=== PATIENT | female | born 1995 | race Caucasian/White ===

== ENCOUNTER 2017-01-18 10:17 | Emergency (ER) | payer BC ==
[~2017-01-18] VITALS: Ht 162.6 cm; Wt 61.0 kg
[2017-01-18 10:27] VITALS: Ht 162.6 cm; Wt 61.0 kg
[2017-01-18 10:53] LABS: URINE BLOOD (Dip) POC 3+ (NEGATIVE)
[2017-01-18] MEDS ORDERED: PHENAZOPYRIDINE 100 MG TAB PO ONE (12:00)
[2017-01-18] MEDS ORDERED: CEPHALEXIN 500 MG CAP PO ONE (12:00)
[2017-01-18] MEDS ORDERED: CEPH-443 PO (12:30)
[2017-01-18] MEDS ORDERED: PHEN-538 PO (12:30)
--- NOTE | 2017-01-18 12:37 | ERD ---
ER Documentation Chief Complaint Date/Time DATE: 01/18/17 TIME: 12:36 Chief Complaint dysuria x 4 days HPI This 21-year-old female presents with dysuria for last 4 days. She denies any fevers, flank pain. She is mild suprapubic pain. She denies vomiting but has mild nausea. She denies previous history of UTI or ROS All systems reviewed and are negative except as per history of present illness. Medications Home Meds Active Scripts Phenazopyridine Hcl* (Pyridium*) 200 Mg Tab, 200 MG PO TID Y for URINARY PAIN, # 6 TAB Prov:ZIA BERNARDO MD 01/18/17 Cephalexin* (Keflex*) 500 Mg Capsule, 500 MG PO QID for 5 Days, CAP Prov:ZIA BERNARDO MD 01/18/17 Allergies Allergies: Coded Allergies: No Known Allergy (Unverified , 01/18/17) PMhx/Soc Medical and Surgical Hx: pt denies Medical Hx, pt denies Surgical Hx Hx Alcohol Use: No Hx Substance Use: No Hx Tobacco Use: No Smoking Status: Never smoker Physical Exam Vitals Vital Signs Date Time Temp Pulse Resp B/P Pulse Ox O2 Delivery O2 Flow Rate FiO2 01/18/17 10:27 98.6 60 18 102/58 100 Physical Exam Const: [] Alert, not ill-appearing. Head: Atraumatic Eyes: Normal Conjunctiva ENT: Normal External Ears, Nose and Mouth. Neck: Full range of motion..~ No meningismus. Resp: Clear to auscultation bilaterally Cardio: Regular rate and rhythm, no murmurs Abd: Soft, non tender, non distended. Normal bowel sounds. Minimal suprapubic tenderness. No tenderness at McBurney's point no Haines sign. Skin: No petechiae or rashes Back: No midline or flank tenderness Ext: No cyanosis, or edema Neur: Awake and alert Psych: Normal Mood and Affect Results 24 hrs Laboratory Tests Test 01/18/17 10:55 01/18/17 12:07 Bedside Urine pH (LAB) 5.0 Bedside Urine Protein (LAB) 3+ Bedside Urine Glucose (UA) 0.1% Bedside Urine Ketones (LAB) 1+ Bedside Urine Blood 3+ Bedside Urine Nitrite (LAB) Positive Bedside Urine Leukocyte Esterase (L 3+ Bedside Glucose 86mg/dL Current Medications Medications (Trade) Dose Ordered Sig/Teetee Route PRN Reason Start Time Stop Time Status Last Admin Dose Admin Cephalexin (Keflex) 500 mg ONCE ONCE PO 01/18/17 12:00 01/18/17 12:11 DC 01/18/17 12:13 Phenazopyridine HCl (Pyridium) 200 mg ONCE ONCE PO 01/18/17 12:00 01/18/17 12:11 DC 01/18/17 12:14 Procedures/MDM Urine shows positive leukocytes, nitrites, glucose, hemoglobin. Accu-Chek is 86. Patient was given Keflex and Pyridium by mouth. Patient presents with dysuria and signs of UTI. She has glucosuria but appears to be an artifact given her normal blood glucose. Patient denies any fevers, vomiting suggestive of sepsis or pyelonephritis or additional conditions warranting further evaluation. She will treated with Keflex and Pyridium and instructions for clear fluids at home. The patient was stable with no new complaints during the ER course. Clinically, there is no current evidence to suggest meningitis, sepsis, acute abdomen, pneumonia, acute coronary syndrome, pulmonary embolism, or any other emergent condition appearing to require further evaluation or hospitalization. The patient should certainly return for any new or worsening symptoms per the aftercare instructions. They should otherwise follow-up with her primary care doctor for reevaluation this week. Departure Diagnosis: Primary Impression: UTI (urinary tract infection) Urinary tract infection type: acute cystitis Hematuria presence: without hematuria Qualified Code: N30.00 - Acute cystitis without hematuria Condition: Stable Patient Instructions: Understanding Urinary Tract Infections (UTIs) Additional Instructions: Cheque otro vez con gonzalez doctor primario en el proximo william or regresa para mas o nueva simptomas. ZIA BERNARDO MD January 18, 2017 12:37
[2017-01-19] MEDS ORDERED: HYDR-906 PO (03:22)
== END 2017-01-18 12:49 | disposition home or self-care (01) ==
LOC: FTE 10:17
DX: N30.00 Acute cystitis without hematuria (principal)
CPT/HCPCS: 81003; 82962; 99283; Z7610

== ENCOUNTER 2017-01-19 00:13 | Emergency (ER) | payer BC ==
[~2017-01-19] VITALS: Ht 165.1 cm; Wt 61.5 kg
[~2017-01-19 00:13] MED LIST: CEPH-443 PO; PHEN-538 PO
[2017-01-19 00:15] VITALS: Ht 165.1 cm; Wt 61.5 kg
[2017-01-19] MEDS ORDERED: ONDANSETRON (ODT) 4 MG TAB ODT STA (01:17)
[2017-01-19] MEDS ORDERED: HYDROCODONE/APAP (5/325) TAB PO ONE (01:30)
--- NOTE | 2017-01-19 01:57 | ERD ---
ER Documentation Chief Complaint Date/Time DATE: 01/19/17 TIME: 01:48 Chief Complaint right side pelvic pain was here today and dx w/ uti and was given atb HPI 21 -year-old female presents here in emergency department for complaints of left lower pelvic pain started today. Patient was diagnosed with urinary tract infection yesterday, was seen here in emergency department, started on antibiotics, currently taking this. Patient's pain got worse today. Describes the pain as sharp pain, 8/10 scale, not better or worse with anything. Patient denies any hematuria or dysuria. Patient denies any fever or chills. Patient complaining of nausea but denies any vomiting. ROS All systems reviewed and are negative except as per history of present illness. Medications Home Meds Active Scripts Phenazopyridine Hcl* (Pyridium*) 200 Mg Tab, 200 MG PO TID Y for URINARY PAIN, # 6 TAB Prov:ZIA BERNARDO MD 01/18/17 Cephalexin* (Keflex*) 500 Mg Capsule, 500 MG PO QID for 5 Days, CAP Prov:ZIA BERNARDO MD 01/18/17 Allergies Allergies: Coded Allergies: No Known Allergy (Unverified , 01/18/17) PMhx/Soc Medical and Surgical Hx: pt denies Medical Hx, pt denies Surgical Hx Hx Alcohol Use: No Hx Substance Use: No Hx Tobacco Use: No Smoking Status: Unknown if ever smoked FmHx Family History: No coronary disease, No diabetes, No other Physical Exam Vitals Vital Signs Date Time Temp Pulse Resp B/P Pulse Ox O2 Delivery O2 Flow Rate FiO2 01/19/17 00:15 98.0 77 20 115/72 97 Physical Exam GENERAL: The patient is well developed and appropriate for usual state of health, in no apparent distress. CHEST: Clear to auscultation bilaterally. There are no rales, wheezes or rhonchi. HEART: Regular rate and rhythm. No murmurs, clicks, rubs or gallops. No S3 or S4. ABDOMEN: Soft, nontender and nondistended. Good bowel sounds. No rebound or guarding. No gross peritonitis. No gross organomegaly or masses. No Haines sign or McBurney point tenderness. BACK: No midline or flank tenderness. EXTREMITIES: Equal pulses bilaterally. There is no peripheral clubbing, cyanosis or edema. No focal swelling or erythema. Full range of motion. Grossly neurovascularly intact. NEURO: Alert and oriented. Cranial nerves 2-12 intact. Motor strength in all 4 extremities with 5/5 strength. Sensation grossly intact. Normal speech and gait. SKIN: There is no apparent rash or petechia. The skin is warm and dry. HEMATOLOGIC AND LYMPHATIC: There is no evidence of excessive bruising or lymphedema. No gross cervical, axillary, or inguinal lymphadenopathy. Result Diagram: 01/19/1721401/19/17214 Results 24 hrs Laboratory Tests Test 01/19/17 01:55 01/19/17 02:15 Urine Color LIANG Urine Clarity CLEAR Urine pH 6.0 Urine Specific [place] <=1.005 Urine Ketones NEGATIVE Urine Nitrite POSITIVE Urine Bilirubin NEGATIVE Urine Urobilinogen 4.0 E.U./dL Urine Leukocyte Esterase TRACE Urine Microscopic RBC 10-25/HPF Urine Microscopic WBC 5-10/HPF Urine Squamous Epithelial Cells FEW Urine Bacteria FEW Urine Hemoglobin 3+ Urine Glucose 0.1%% Urine Total Protein 2+ White Blood Count 4.810^3/ul Red Blood Count 4.4210^6/ul Hemoglobin 13.5g/dl Hematocrit 40.6% Mean Corpuscular Volume 91.9fl Mean Corpuscular Hemoglobin 30.5pg Mean Corpuscular Hemoglobin Concent 33.3g/dl Red Cell Distribution Width 11.8% Platelet Count 20421^3/UL Mean Platelet Volume 9.3fl Neutrophils % 56.7% Lymphocytes % 32.2% Monocytes % 9.2% Eosinophils % 1.5% Basophils % 0.2% Nucleated Red Blood Cells % 0.0/100WBC Neutrophils # 2.710^3/ul Lymphocytes # 1.510^3/ul Monocytes # 0.410^3/ul Eosinophils # 0.110^3/ul Basophils # 0.010^3/ul Nucleated Red Blood Cells # 0.010^3/ul Sodium Level 142mmol/L Potassium Level 3.6mmol/L Chloride Level 104mmol/L Carbon Dioxide Level 26mmol/L Anion Gap 16 Blood Urea Nitrogen 18mg/dl Creatinine 0.67mg/dl Glucose Level 89mg/dl Calcium Level 8.9mg/dl Total Bilirubin 1.0mg/dl Direct Bilirubin 0.00mg/dl Indirect Bilirubin 1.0mg/dl Aspartate Amino Transf (AST/SGOT) 19IU/L Alanine Aminotransferase (ALT/SGPT) 29IU/L Alkaline Phosphatase 78IU/L Total Protein 7.5g/dl Albumin 4.4g/dl Globulin 3.10g/dl Albumin/Globulin Ratio 1.41 Lipase 39U/L Current Medications Medications (Trade) Dose Ordered Sig/Teetee Route PRN Reason Start Time Stop Time Status Last Admin Dose Admin Acetaminophen/ Hydrocodone Bitart ([place] (5/325)) 1 tab ONCE ONCE PO 01/19/17 01:30 01/19/17 01:31 DC 01/19/17 02:48 Ondansetron HCl (Zofran Odt) 4 mg ONCE STAT ODT 01/19/17 01:17 01/19/17 01:19 DC Patient was given medication for pain here in emergency department, after treatment, patient verbalized feeling much better. Patient's pain is improved.Patient was given Zofran here in the emergency department. After treatment, patient was able to tolerate po fluids here in the emergency department without any vomiting. There is no signs and symptoms of dehydration. PROCEDURE: ULTRASOUND PELVIS CLINICAL INDICATION: 21-year-old female with pelvic pain. TECHNIQUE: Multiple sonographic images of the pelvis were obtained utilizing a transabdominal and endovaginal technique. The images were reviewed on a PACS workstation. COMPARISON: None. FINDINGS: The uterus is visualized and measures 7.4 x 3.7 x 3.6 cm. The endometrial echo complex is within normal limits and measures 3.0 mm. There is an intrauterine device within the endometrial canal. There is trace pelvic free fluid. The right ovary has a normal echotexture and measures 3.3 x 1.7 x 2.0 cm. The left ovary has a normal echotexture and measures 4.2 x 2.2 x 2.8 cm. There is flow identified within the ovaries bilaterally. No adnexal masses are noted. IMPRESSION: 1. Intrauterine device. 2. Trace pelvic free fluid. .Del Marcial MD, Date Time Electronically viewed and signed by .Del Marcial MD, on 01/19/2017 03:12 .M/ CC: AMPARO JIANG NP Procedures/MDM Medical Decision Making: Patient symptoms is consistent with urinary tract infection. No symptoms of ovarian torsion noted. No symptoms of any other abdominal emergencies noted. Low suspicion for pyelonephritis. There is low suspicion for abdominal emergencies at this time. Patients abdominal exam is normal at this time. Patients radiology exam does not show any abdominal emergencies at this time. There is low suspicion for appendicitis, cholecystitis , abdominal aortic aneurysms or peritonitis at this time. There is low suspicion for sepsis. Patient appears well and is hemodynamically stable. Disposition: Home. Condition: Stable Prescription continue Keflex, [place] was given for pain. Instructions: Patient is advised to take medications as prescribed. Patient is advised to rest, increase fluid intake and do good perineal hygiene. Patient is advised that if symptoms are worse, severe abdominal pain, uncontrolled vomiting , high fever, severe flank pain, worst signs and symptoms, to return to the emergency department immediately. Otherwise, patient can follow up with primary care doctor in 5-7 days. Departure Diagnosis: Primary Impression: UTI (urinary tract infection) Urinary tract infection type: acute cystitis Hematuria presence: without hematuria Qualified Code: N30.00 - Acute cystitis without hematuria Condition: Stable Patient Instructions: Understanding Urinary Tract Infections (UTIs) Additional Instructions: Patient is advised to take medications as prescribed. Patient is advised to rest , increase fluid intake and do good perineal hygiene. Patient is advised that if symptoms are worse, severe abdominal pain, uncontrolled vomiting, high fever , severe flank pain, worst signs and symptoms, to return to the emergency department immediately. Otherwise, patient can follow up with primary care doctor in 5-7 days. AMPARO JIANG NP January 19, 2017 01:57
[2017-01-19 02:27] LABS: ADD UMIC YES; URINE BILIRUBIN (Dip) NEGATIVE (NEGATIVE); URINE BLOOD (Dip) 3+ (NEGATIVE); URINE COLOR AMBER (YELLOW); URINE KETONES (Dip) NEGATIVE (NEGATIVE); URINE LEUKOCYTE ESTERASE (Dip) TRACE (NEGATIVE); URINE NITRITE (Dip) POSITIVE (NEGATIVE); URINE TOTAL PROTEIN (Dip) 2+ (NEGATIVE); URINE UROBILINOGEN (Dip) 4.0 E.U./dL (0.1-1.0)
[2017-01-19 02:32] LABS: ADD SCAN DIFF NO
[2017-01-19 02:34] LABS: BASOPHILS % 0.2 % (0.0-2.0); EOSINOPHILS # 0.1 10^3/ul (0.0-0.5); EOSINOPHILS % 1.5 % (0.0-7.0); HEMATOCRIT 40.6 % (37.0-47.0); HEMOGLOBIN 13.5 g/dl (12.0-16.0); LYMPHOCYTES # 1.5 10^3/ul (0.8-2.9); LYMPHOCYTES % 32.2 % (15.0-51.0); MEAN CORPUSCULAR HEMOGLOBIN 30.5 pg (29.0-33.0); MEAN CORPUSCULAR HGB CONC 33.3 g/dl (32.0-37.0); MEAN CORPUSCULAR VOLUME 91.9 fl (82.0-101.0); MEAN PLATELET VOLUME 9.3 fl (7.4-10.4); MONOCYTE # 0.4 10^3/ul (0.3-0.9); MONOCYTES % 9.2 % (0.0-11.0); NEUTROPHIL # 2.7 10^3/ul (1.6-7.5); NEUTROPHILS % 56.7 % (39.0-77.0); PLATELET COUNT 262 10^3/UL (140-415); RED BLOOD COUNT 4.42 10^6/ul (4.20-5.40); RED CELL DISTRIBUTION WIDTH 11.8 % (11.5-14.5); WHITE BLOOD COUNT 4.8 10^3/ul (4.8-10.8)
[2017-01-19 02:48] LABS: ALBUMIN 4.4 g/dl (3.3-4.9); POTASSIUM 3.6 mmol/L (3.5-5.1)
[2017-01-19 02:50] LABS: CREATININE 0.67 mg/dl (0.44-1.00)
[2017-01-19 02:51] LABS: ALBUMIN/GLOBULIN RATIO 1.41; CALCIUM 8.9 mg/dl (8.4-10.2); TOTAL PROTEIN 7.5 g/dl (6.1-8.1)
[2017-01-19 03:07] LABS: BACTERIA,URINE FEW; SQUAMOUS EPITHELIAL CELL,UR FEW
--- NOTE | 2017-01-19 03:12 | RADRPT ---
PROCEDURE: ULTRASOUND PELVIS CLINICAL INDICATION: 21-year-old female with pelvic pain. TECHNIQUE: Multiple sonographic images of the pelvis were obtained utilizing a transabdominal and endovaginal technique. The images were reviewed on a PACS workstation. COMPARISON: None. FINDINGS: The uterus is visualized and measures 7.4 x 3.7 x 3.6 cm. The endometrial echo complex is within nor mal limits and measures 3.0 mm. There is an intrauterine device within the endometrial canal. There is trace pelvic free fluid. The right ovary has a normal echotexture and measures 3.3 x 1.7 x 2.0 cm . The left ovary has a normal echotexture and measures 4.2 x 2.2 x 2.8 cm. There is flow identifie d within the ovaries bilaterally. No adnexal masses are noted. IMPRESSION: 1. Intrauterine device. 2. Trace pelvic free fluid. .Del Marcial MD, MD Date Time Electronically viewed and signed by .Del Marcial MD, on 01/19/2017 03:12 .M/
[2017-01-19] MEDS ORDERED: HYDR-906 PO (03:22)
[2017-01-19 03:42] VITALS: BP 125/72; PULSE 72; RESP 16
== END 2017-01-19 03:43 | disposition home or self-care (01) ==
LOC: FTE 00:13
DX: N30.00 Acute cystitis without hematuria (principal); R11.0 Nausea
CPT/HCPCS: 36415; 76830; 76856; 80053; 81001; 83690; 85025; 87086; 99284; Z7610; 81003